=== PATIENT | female | born 1995 | race American Indian/Alaskan Native ===

== ENCOUNTER 2017-02-18 16:36 | Emergency (ER) | payer SELFPAY ==
[2017-02-18] MEDS ORDERED: MOTRIN PO ONE (17:54)
--- NOTE | 2017-02-18 19:07 | Emergency Department Report ---
Entered by VIVIANA GOMEZ, acting as scribe for TREVOR NAJERA PA. HPI - General Chief Complaint: Sore Throat Time Seen by Provider: 02/18/17 17:50 - HPI HPI: 21 y/o female with PMHx of tonsillitis, presents to the ED c/o sore throat x 1.5 weeks. Associated symptoms include ear pain but denies fever and chills. Pain is described as 8/10 on a severity scale. Patient states she was diagnosed with tonsillitis but has not followed up for tonsillectomy with adenoidectomy to be done since she moved here to live with her aunt. No alleviating or aggravating factors. NKDA. Denies any drooling. Denies any chest pain or shortness of breath. Minimal coughing. Pain is achy and no [id number]. Medication taken. Patient is also complaining of sinus congestion and runny nose. ED Past Medical Hx - Past Medical History Previous Medical History?: Yes Additional medical history: tonsilitis - Surgical History Past Surgical History?: No - Family History Family history: hypertension - Social History Smoking Status: Never Smoker Substance Use Type: Non Opiate Pain - Medications Home Medications: Home Medications Medication Instructions Recorded Confirmed Last Taken Type Amoxicillin/K Clav Tab [Augmentin 1 tab PO Q12HR #20 tab 02/18/17 Unknown Rx 875 mg] Cetirizine HCl [ZyrTEC] 10 mg PO QDAY #14 capsule 02/18/17 Unknown Rx Fluticasone [Flonase] 1 spray NS QDAY #1 bottle 02/18/17 Unknown Rx ED Review of Systems ROS: Stated complaint: SORE THROAT Other details as noted in HPI Comment: All other systems reviewed and negative Constitutional: denies: chills, fever Eyes: denies: eye discharge ENT: ear pain, throat pain, congestion. denies: dental pain Respiratory: no symptoms reported Cardiovascular: denies: chest pain, palpitations, edema, syncope Gastrointestinal: denies: abdominal pain, nausea, vomiting Musculoskeletal: denies: back pain, joint swelling, arthralgia, myalgia Skin: denies: rash Neurological: denies: headache, weakness Physical Exam - Physical Exam Vital Signs: Vital Signs 02/18/17 16:42 Temperature 98.1 F Pulse Rate 86 Respiratory 20 Rate Blood Pressure 135/94 O2 Sat by Pulse 99 Oximetry General: This is a 21-year-old female well-nourished well-developed in no acute distress. Physical Exam: Head: Normocephalic atraumatic Mouth: Moist, no pharyngeal exudate or erythema. Uvula is midline and oral airway is patent. No facial swelling. No peritonsillar abscesses. Positive enlarged tonsils without any exudate or erythema. Nose: Congested with erythema to mucosa. Clear Drainage. Maxillary sinuses tender to palpate Neck: Supple, no C-spine tenderness, no tracheal deviation. Nontender to palpate. no adenopathy Ears: Bilateral TMs congested without erythema. Bilateral EAC without any redness swelling or drainage. Eyes: Bilateral pupils equal and reactive to light, bilateral EOM intact. Bilateral sclera and conjunctiva without injection. Normal accommodation. Lungs: Clear to auscultate bilaterally no rhonchi wheezes or rales. Normal work of breathing extremity; No CCE. +2 pulses. No neurovascular compromise Cardiovascular: S1-S2, regular rate rhythm. No murmurs. Skin: clean Dry and intact no rash no lesions Psych: Normal mood and behavior ED Course Vital Signs 02/18/17 16:42 Temperature 98.1 F Pulse Rate 86 Respiratory 20 Rate Blood Pressure 135/94 O2 Sat by Pulse 99 Oximetry - Reevaluation(s) Reevaluation #1: 02/18/17 18:56 Patient received Motrin 800 mg in emergency room for sore throat. ED Medical Decision Making - Medical Decision Making ED course: Patient complaining of enlarged tonsils and sore throats and said she was supposed to have T&A in the past and did not get to do so because she moved to [place]. She says she's been having symptoms for 1.5 weeks. PT found to have a sinus infection Cama, acute pharyngitis, tonsillar enlargement without erythema or exudates. I discussed the patient diagnosis and treatment plan. Given Motrin 800 mg when necessary emergency room to alleviate sore throats. I discussed with her that I will refer her to ear nose and throat regarding her tonsils and adenoids. Patient discharged home with prescription for Augmentin, Flonase and Zyrtec. Critical care attestation.: If time is entered above; I have spent that time in minutes in the direct care of this critically ill patient, excluding procedure time. ED Disposition Clinical Impression: Tonsillar enlargement Sinusitis, acute Qualifiers: Sinusitis location: maxillary Recurrence: recurrent Qualified Code(s): J01.01 - Acute recurrent maxillary sinusitis Pharyngitis Qualifiers: Pharyngitis/tonsillitis etiology: unspecified etiology Qualified Code(s): J02.9 - Acute pharyngitis, unspecified Disposition: TO HOME OR SELFCARE Is pt being admited?: No Does the pt Need Aspirin: No Condition: Stable Instructions: Pharyngitis (ED), Sinusitis (ED) Additional Instructions: Please follow up with ENT doctor. Refer to discharge instructions paperwork for details Take antibiotic as prescribed. Flush nostrils out with saline nasal wash. Prescriptions: Amoxicillin/K Clav Tab [Augmentin 875 mg] 1 tab PO Q12HR #20 tab Cetirizine HCl [ZyrTEC] 10 mg PO QDAY #14 capsule Fluticasone [Flonase] 1 spray NS QDAY #1 bottle Referrals: [facility] [Outside] - 3-5 Days VIKA GUTIERREZ MD [Staff Physician] - 3-5 Days [facility], [Primary Care Provider] - 3-5 Days Forms: Accompanied Note, Work/School Release Form(ED) This documentation as recorded by the JASON hernandes ELIZABETH,accurately reflects the service I personally performed and the decisions made by ,TREVOR NAJERA PA.
[2017-02-18 19:45] VITALS: BP 117/82
== END 2017-02-18 19:10 | disposition home or self-care (01) ==
LOC: ED 16:36
DX: J01.01 Acute recurrent maxillary sinusitis (principal); J02.9 Acute pharyngitis, unspecified; J35.1 Hypertrophy of tonsils; Z91.010 Allergy to peanuts; Z91.048 Other nonmedicinal substance allergy status
CPT/HCPCS: 99282

== ENCOUNTER 2017-05-08 15:00 | Emergency (ER) | payer SELFPAY ==
[2017-05-08 15:23] VITALS: BP 137/80
[2017-05-08 16:05] LABS: Alanine Aminotransferase 24 units/L (7-56); Albumin 4.1 g/dL (3.9-5); Albumin/Globulin Ratio 1.2 %; Alkaline Phosphatase 80 units/L (35-129); Anion Gap 16 mmol/L; Blood Urea Nitrogen 12 mg/dL (7-17); Calcium 9.1 mg/dL (8.4-10.2); Carbon Dioxide 24 mmol/L (22-30); Chloride 103.3 mmol/L (98-107); Glucose 82 mg/dL (65-100); Lipase 30 units/L (13-60); Potassium 4.3 mmol/L (3.6-5.0); Sodium 139 mmol/L (137-145); Total Protein 7.5 g/dL (6.3-8.2)
[2017-05-08 16:08] LABS: Basophils % (Auto) 0.5 % (0.0-1.8); Eosinophils % (Auto) 3.9 % (0.0-4.3); Hematocrit 38.5 % (30.3-42.9); Hemoglobin 12.5 gm/dl (10.1-14.3); Mean Corpuscular HGB Conc 33 % (30-34); Mean Corpuscular Hemoglobin 28 pg (28-32); Mean Corpuscular Volume 85 fl (79-97); Platelet Count 406 K/mm3 (140-440); Red Blood Count 4.52 M/mm3 (3.65-5.03); Red Cell Distribution Width 13.9 % (13.2-15.2); White Blood Count 7.2 K/mm3 (4.5-11.0)
[2017-05-08 16:15] LABS: Bilirubin,Urine NEG (Negative); Blood,Urine MOD (Negative); Ketones,Urine NEG (Negative); Leukocyte Esterase,Urine NEG (Negative); Mucus,Urine 1+ /HPF; Nitrite,Urine NEG (Negative); Protein,Urine <15 mg/dL mg/dL (Negative); Urobilinogen,Urine < 2.0 mg/dL (<2.0)
== END 2017-05-09 02:45 | disposition left against medical advice (07) ==
LOC: ED 15:00
DX: M79.1 Myalgia (principal); Z53.21 Procedure and treatment not carried out due to patient leaving prior to being seen by health care provider
CPT/HCPCS: 36415; 80053; 81001; 83690; 85025